=== PATIENT | female | born 1960 | race Caucasian/White ===

== ENCOUNTER → 2023-09-04 09:55 | Outpatient (REF) | payer OTHER, SELFPAY | LOC: HWRAD 09:55 | PROVIDERS: ATTENDING PHYSICIAN Nurse Practitioner | DX: M54.2 Cervicalgia (principal) | CPT/HCPCS: 72050 ==

== ENCOUNTER → 2023-10-24 20:02 | Outpatient (REF) | payer OTHER, SELFPAY | LOC: MRI 20:02 | PROVIDERS: ATTENDING PHYSICIAN Nurse Practitioner | DX: R42 Dizziness and giddiness (principal); R41.89 Other symptoms and signs involving cognitive functions and awareness; R29.898 Other symptoms and signs involving the musculoskeletal system | CPT/HCPCS: 70553; A9575 ==

== ENCOUNTER 2024-03-17 22:12 | Observation (INO) | payer OTHER, SELFPAY ==
[2024-03-17] VITALS (11 sets, daily range): BP systolic 102–160; BP diastolic 54–110; BMI 30.3; BMI 29.4
[2024-03-17 16:42] LABS: Glucose - Point of Care 591 mg/dl (70-99)
--- NOTE | 2024-03-17 16:55 | EDRN ---
Dr. Dodd in to see pt.
--- NOTE | 2024-03-17 17:07 | ED.GENMED ---
History of Present Illness
General
Chief Complaint: Blood Sugar Problem
Time Seen by Provider: 03/17/24 16:48
History of Present Illness
History of Present Illness:
63-year-old female with history of diabetes and hyperlipidemia presenting to the emergency department with hyperglycemia. Patient went to go see her primary care doctor as a follow-up for her diabetes. Reports that her last hemoglobin A1c was in
the 7 range. However, today it was greater than 14 and her sugar was greater than 500. Notes that she has been on metformin, does not routinely check her sugars. Reports that her temperament has been short, otherwise denies significant acute
symptoms. Has had some polyuria, however denies polydipsia. Denies fever, chest pain, difficulty breathing, abdominal pain, vomiting. She does currently have a poison vy infection. She went to urgent care and they prescribed her oral steroids,
however she never started the prescription. Denies additional acute medical complaints.
Past History
Past History
ED Past Medical History: NIDDM and Other (Pancreatitis 30 yrs ago)
ED Past Surgical History: Appendectomy and Cholecystectomy
Social History
Tobacco: Non-smoker
Alcohol: Occasional
Drug: None
Living: with family
Phy Exam
Physical Exam
Physical Exam:
General: Well-appearing, no clinical signs of dehydration, nontoxic and in no acute distress
HEENT: protecting airway
Neck: appears supple
CV: Normal heart rate, regular rhythm, no evidence of cyanosis
Resp: No accessory muscle use, no increased work of breathing, lungs clear to auscultation bilaterally
Abd: Soft and non-distended, no tenderness to palpation, normal bowel sounds
Extremities: No deformities, no swelling, no erythema, pulses and sensation intact
Neuro: alert, no focal neurologic deficit
: deferred
Rectal: deferred
Psych: Normal affect
Skin: Erythematous and plaque-like rash to upper and lower extremities, scabbing and healing in quality
Course
Orders/Labs/Results
Orders:
Orders
03/17/24 16:49
IV Insert/Care/Rem.- Treatment PRN
0.9% Sodium Chloride 1000 ml [Nss] 1,000 ml IV BOLUS
03/17/24 17:45
B-Hydroxybutyrate Urgent
Complete Blood Count/With Diff Urgent
Comprehensive Metabolic Panel Urgent
Venous Blood Gas Urgent
%Oxygen/Room Air: 21
03/17/24 19:58
Urinalysis Reflex To Culture Urgent
Date Specimen was Collected: 03/17/24
Time Specimen was Collected: 19:55
03/18/24 07:30
Insulin Aspart Pen [Novolog Flexpen] 10 units SC AC
Abnormal Lab Results
03/17/24 03/17/24 03/17/24
16:40 17:45 19:58
MCH 31.2 H pg
(27.0-31.0)
MPV 10.6 H fL
(7.4-10.4)
VBG pO2 52 H mmHg
(30-50)
Sodium 133 L mmol/L
(135-145)
Creatinine 0.5 L mg/dL
(0.6-1.0)
Glucose 543 H* mg/dl
(70-99)
Urine Glucose 3+ A
(Negative)
POC Glucose 591 H* mg/dl
(70-99)
03/17/24
20:04
MCH
MPV
VBG pO2
Sodium
Creatinine
Glucose
Urine Glucose
POC Glucose 354 H mg/dl
(70-99)
03/17/24 17:45
03/17/24 17:45
Vital Signs
Initial and Last Documented VS:
Initial Vital Signs
Temp Pulse Resp BP Pulse Ox
98.1 F 96 18 160/81 100
03/17/24 16:36 03/17/24 16:36 03/17/24 16:36 03/17/24 16:36 03/17/24 16:36
Last Documented Vital Signs
Temp Pulse Resp BP Pulse Ox
98.1 F 75 16 128/61 99
03/17/24 16:36 03/17/24 18:30 03/17/24 18:30 03/17/24 18:01 03/17/24 18:30
MDM/Problems Addressed
MDM/Problems Addressed:
63-year-old female with history of diabetes and hyperlipidemia presenting for hyperglycemia. Vital signs on arrival are significant for hypertension.
On exam, patient is well-appearing, no acute distress or discomfort. Patient's glucose checked in triage, 591. Given hemodynamic stability and clinical appearance, lower suspicion for DKA. Will obtain laboratory analysis including VBG, beta
hydroxybutyrate. Will start patient on IV fluids. Will obtain electrolyte panel and continue to closely monitor.
20:00 -patient's sugar is nearly 600. No evidence of DKA. Given that patient is insulin na�ve, feel the patient warrants admission for continued glucose checks, insulin initiation, diabetes teaching. Patient agreeable to plan.
*Critical Care Note
Total Time (30-74mins, 75-104mins- exclusive of procedures): Not Applicable
ED Attending Note
-
Portions of this chart may have been created with voice recognition software.� Occasional wrong word or��sound alike� substitutions may have occurred due to the inherent limitations of voice recognition software.
Discharge Plan
Departure
Prescriptions:
No Action
atorvastatin 20 mg Tablet
20 mg PO HS
Theragen Tablet
1 tab PO DAILY
metformin 750 mg Tablet Extended Release 24 Hr
750 mg PO HS
Referrals:
Lillian Navarrete CRNP [Family Provider] -
Interventions
Interventions:
*Risk Screen - Suicide Last Done: 03/17/24 17:49
*General Assessment Last Done: 03/17/24 17:49
*Neglect/Abuse Screening Last Done: 03/17/24 17:49
ED- Fall Risk Assessment Last Done: 03/17/24 17:49
*ED COVID-19 Vaccine History Last Done: 03/17/24 17:49
ED- Neurological Assessment Last Done: 03/17/24 17:51
Discharge Date and Time
Print Language: LITHUANIAN
[2024-03-17] MEDS: NSS 1000 IV ×2 (17:48→23:32)
[2024-03-17 17:51] LABS: % Basophils 0.6 % (0-2); % Eosinophils 3.9 % (0-6); % Immature Granulocytes 0.4 % (0-0.5); % Lymphocytes 30.3 % (20.5-51.1); % Monocytes 7.3 % (1.7-9.3); % Neutrophils 57.5 % (42.2-75.2); Absolute Eosinophils 0.3 10^3/uL (0-0.7); Absolute Lymphocytes 2.1 10^3/uL (1.2-3.4); Absolute Monocytes 0.5 10^3/uL (0.1-0.6); Hematocrit 37.2 % (37.0-47.0); Hemoglobin 13.4 g/dL (12.0-16.0); Mean Corpuscular Hgb 31.2 pg (27.0-31.0); Mean Corpuscular Volume 86.5 fL (81.0-99.0); Mean Platelet Volume 10.6 fL (7.4-10.4); Nucleated Red Blood Cells % 0 %; Platelet Count 240 10^3/uL (130-400); Red Cell Dist. Width 12.3 % (11.5-14.5); White Blood Cell Count 6.9 10^3/uL (4.8-10.8)
[2024-03-17 17:52] LABS: Venous Blood Gas B.E. 1.4 mmol/L (-4 to +4); Venous Blood Gas HCO3 26.6 mmol/L (22-27); Venous Blood Gas O2 Sat % 87.3 %; Venous Blood Gas pCO2 43 mmHg (35-48); Venous Blood Gas pO2 52 mmHg (30-50)
[2024-03-17 18:22] LABS: ALT (SGPT) 24 U/L (0-35); AST (SGOT) 25 U/L (14-36); Albumin 4.3 g/dl (3.5-5.0); Alkaline Phosphatase 92 U/L (38-126); Blood Urea Nitrogen 15 mg/dl (7-17); Calcium 9.4 mg/dl (8.4-10.2); Carbon Dioxide 25 mmol/L (22-30); Chloride 98 mmol/L (98-107); Estimated Creatinine Clearance 98 ml/min; Glucose 543 mg/dl (70-99); Potassium 4.1 mmol/L (3.5-5.1); Sodium 133 mmol/L (135-145); Total Bilirubin 0.5 mg/dl (0.2-1.3); Total Protein 6.8 g/dl (6.3-8.2); eGFR > 60.00
--- NOTE | 2024-03-17 18:36 | EDRN ---
Glucose 543, called Dr. Dodd no answer. Will TT her the value.
--- NOTE | 2024-03-17 18:44 | EDRN ---
Pt OOB to BR at this time.
[2024-03-17 19:17] LABS: B-Hydroxybutyrate 0.12 mmol/L (0.02-0.27)
[2024-03-17 20:04] LABS: Urine Albumin Negative (Neg - Trace); Urine Bilirubin Negative (Negative); Urine Character Clear (Clear); Urine Color Yellow; Urine Glucose 3+ (Negative); Urine Ketone Negative (Negative); Urine Leukocyte Negative (Negative); Urine Nitrite Negative (Negative); Urine Occult Blood Negative (Negative); Urine Urobilinogen Negative (Neg - 1+); Urine pH 6.5 (5.0-9.0)
[2024-03-17 20:05] LABS: Glucose - Point of Care 354 mg/dl (70-99)
[2024-03-17 21:14] LABS: Glucose - Point of Care 389 mg/dl (70-99)
[2024-03-17] MEDS: BENADRYL 25 MG IV (21:22)
--- NOTE | 2024-03-17 21:40 | HPS.HSE ---
Family Physician
-
Family Physician: ALEXIA Freitas
Chief Complaint
-
High Glucose
History of Present Illness
Patient is a 63y F with PMH significant for DM-II who presents to ED at the direction of her PCP for evaluation of hyperglycemia. Patient states that she was seen today for a routine visit / lab follow-up for her DM. patent was advised that her
A1C was 14% and her glucose was > 500. It was recommended she present to the ED for further evaluation.
Patient takes metformin once daily for DM. She states that her last A1C was in the 7s - though she admits that this was some time ago.
She does not monitor her glucose by fingerstick at home.
Patient notes that she has actually lost weight over the past few months. She admits that this has occurred without any real effort on her part; however, she did not think much of it.
She also complains of recent fatigue, polyuria. No chest pain or dyspnea. No fevers / chills.
Patient recently developed significant contact dermatitis after working in her yard. She has been using multiple OTC agents as well as topical steroids prescribed by Urgent Care.
Patient notes that she was given an Rx for systemic steroids; however, she did not actually take any doses of that medication yet.
Medical History
Past Medical History
Past Medical History: Reports Other
Additional Past Medical History:
DM-II
Past Surgical History: Reports Other
Additional Past Surgical History:
Cholecystectomy
Appendectomy
L Heel Surgery
Social History
Tobacco: Smoker (Current some day smoker.)
Alcohol: Occasional
Family History
Family History: Other (Father: DM)
Allergies / Home Medications
Allergies reflects when Allergies were last updated in [employer].
Home Medications with original date entered in [employer]
Allergy/Medication List:
Allergies
Allergy/AdvReac Type Severity Reaction Status Date / Time
No Known Allergies Allergy Verified 12/23/22 12:13
Home Medications
atorvastatin 20 mg tablet 20 mg PO HS 03/17/24
metformin 750 mg tablet,extended release 24 hr 750 mg PO HS 03/17/24
therapeutic multivitamin 1 tab PO DAILY 03/17/24
Review of Systems
-
History Source: Patient
A 12 point ROS was completed and negative except as noted: Yes
Constitutional: Reports Weight Loss and Fatigue; Denies Fever or Chills
Respiratory: Denies Cough or Trouble Breathing
Cardiac: Denies Chest Pain or Palpitations
Abdomen/GI: Denies Abdominal Pain, Nausea, Vomiting or Diarrhea
: Reports Frequency; Denies Dysuria or Flank Pain
Musculoskeletal: Denies Joint Pain
Skin: Reports Rash
Neurological: Denies Dizzy or Headache
Endocrine: Reports Polyuria; Denies Polydipsia
Psych: Denies Depression or Anxiety
Physical Exam
Vital Signs
Vital Signs
Temp Pulse Resp BP Pulse Ox
98.4 F 77 10 131/86 100
03/17/24 20:06 03/17/24 21:00 03/17/24 21:00 03/17/24 21:06 03/17/24 21:06
Physical Exam
General: Other (63y F in no acute distress.)
HEENT: Moist mucous membranes and PERRLA
Respiratory: Clear; No Wheezes, Rales or Rhonchi
Cardiac: S1/S2 and Regular Rhythm; No Murmur
GI: Soft, Non Tender, Non Distended and Normal Bowel Sounds
Musculoskeletal: No Clubbing, No Cyanosis and No Edema
Skin: Other (Scattered areas of excoriation / inflammation on b/l UEs, LEs, trunk. No pustular / blistering lesions.)
Neuro: AO x 3
Laboratory Results
-
03/17/24 17:45
03/17/24 17:45
Laboratory Results
Total Bilirubin 0.5 mg/dl (0.2-1.3) 03/17/24 17:45
AST 25 U/L (14-36) 03/17/24 17:45
ALT 24 U/L (0-35) 03/17/24 17:45
Alkaline Phosphatase 92 U/L (38-126) 03/17/24 17:45
Impression/Plan
-
A/P: Patient is a 63y F with PMH significant for DM who presents to ED for evaluation of hyperglycemia.
DM-II, Uncontrolled
- Observe overnight for further evaluation and treatment.
- Glucose decreased from 500s to 300s with only IVFs in the ED.
- ? some elevation due to significant topical steroid use +/- acute inflammatory process / contact dermatitis; however, A1C > 14% points to longer term poor control.
- Begin low-dose sulfonylurea for now.
- Increase metformin to 1000mg BID dosing.
- Follow glucose and cover with SSI as needed.
- DM Education consult.
- Once glucose control is improved, discharge for continued OP follow-up with PCP.
Contact Dermatitis
- Avoid further steroids - topical or systemic - for now.
- Benadryl PRN itching.
DVT Prophylaxis: SCDs
Code Status: Full
[2024-03-17] MEDS: GLUCOTROL 2.5 MG PO (21:55)
[2024-03-17 23:20] LABS: Glucose - Point of Care 428 mg/dl (70-99)
[2024-03-17] MEDS: LIPITOR 20 MG PO (23:32)
[2024-03-18 00:56] LABS: Glucose 377 mg/dl (70-99)
[2024-03-18] MEDS: NOVOLOG FLEXPEN 5 UNITS SC (01:17)
[2024-03-18] MEDS: MELATONIN 3 MG PO (01:18)
[2024-03-18 03:25] LABS: Glucose - Point of Care 242 mg/dl (70-99)
[2024-03-18 06:00] VITALS: BMI 29.3
[2024-03-18 07:18] LABS: Glucose - Point of Care 237 mg/dl (70-99)
[2024-03-18 07:20] VITALS: BP 105/64
[2024-03-18] MEDS: BENADRYL 25 MG PO (07:37)
[2024-03-18 08:11] LABS: Blood Urea Nitrogen 13 mg/dl (7-17); Calcium 8.7 mg/dl (8.4-10.2); Carbon Dioxide 23 mmol/L (22-30); Chloride 107 mmol/L (98-107); Estimated Creatinine Clearance 97 ml/min; Glucose 211 mg/dl (70-99); Potassium 3.8 mmol/L (3.5-5.1); Sodium 138 mmol/L (135-145); eGFR > 60.00
[2024-03-18] MEDS: GLUCOPHAGE 1000 MG PO (08:31)
[2024-03-18] MEDS: GLUCOTROL 2.5 MG PO (08:31)
[2024-03-18] MEDS: NOVOLOG FLEXPEN-LOW RESISTANCE 2 UNITS SC ×2 (08:33→12:13)
[2024-03-18 08:39] LABS: TSH Reflex To Free T4 1.88 uIU/ml (0.47-4.68)
[2024-03-18] MEDS: NSS 1000 IV (09:23)
[2024-03-18 09:56] LABS: Hemoglobin 12.9 g/dL (12.0-16.0); Mean Corp Hgb Conc. 35.8 g/dL (33.0-37.0); Mean Corpuscular Hgb 31.1 pg (27.0-31.0); Mean Corpuscular Volume 86.7 fL (81.0-99.0); Mean Platelet Volume 10.1 fL (7.4-10.4); Platelet Count 235 10^3/uL (130-400); Red Blood Cell Count 4.15 10^6/uL (4.20-5.40); Red Cell Dist. Width 12.4 % (11.5-14.5); White Blood Cell Count 6.4 10^3/uL (4.8-10.8)
--- NOTE | 2024-03-18 10:22 | CM ---
Patient seen at bedside.
Dx: Uncontrolled diabetes
IA completed. Observation form explained & signed.
Patient lives in split level home with .
7 steps to 1st floor, 7 steps to 2nd floor.
PLOF: Independent, driving.
PCP: Dr. Annabella Navarrete
Pharmacy: [facility]
PLAN: Discharge when medically stable.
Patient has car here
[2024-03-18 10:57] LABS: Glycohemoglobin (HgbA1c) 13.4 % (4.0-5.6)
--- NOTE | 2024-03-18 11:36 | W.PN.HOSP.TC ---
Addendum entered and electronically signed by Denys Mary MD 03/18/24 15:45:
uncontrolled dm
-start long short acting insulin
provide insulin teaching
acccuchecks bg goal 140-180 ssi ccdiet
need outpt pod and othal follow up
rash start antifungal ointment and continue bendaryl
outpt derm follow up
Original Note:
Today's Communication/Plan
-
Diabetes nurse educator.
Stop glipizide.
Start on Lantus and NovoLog regimen.
Continuous glucose monitor.
Topical antifungal ointment and Benadryl.
Plan for discharge.
Assessment / Plan
Assessment / Plan
[id number]-old female with PMHx significant for DM 2, obesity, acute pancreatitis secondary to Ozempic use, cholecystectomy and appendectomy presents to the [facility] ER after seeing her primary care and POC blood glucose was 569.
Diagnosed with uncontrolled type 2 diabetes mellitus.
Plan-
DM type II uncontrolled-
Blood glucose improved from 500s to 300s with IV fluids in the emergency room.
States patient has not used any oral steroids even though she was prescribed.
Topical steroids might cause mild elevation in blood sugars but are highly unlikely to cause such high elevations.
HbA1c greater than 14%, likely secondary to her acute pancreatitis history in the past.
Would not use sulfonylurea in a patient with history of pancreatitis.
Metformin thousand mg twice daily dosing.
Diabetes nurse educator consult for teaching insulin regimen, diabetic diet, and diabetes education.
Blood glucose is at 230 7 in the AM today and patient received sliding scale insulin.
Plan for discharge on insulin regimen and with a continuous glucose monitor.
Skin rash-
Could not rule out if the rash is contact dermatitis versus tinea.
Recommended to follow-up on outpatient basis for punch biopsy and diagnosis, appropriate management.
Benadryl as needed for itching, topical antifungal empirically to see if the rash is improving.
Hyperlipidemia-
Continue home statin.
DVT prophylaxis-patient on Lovenox
CODE STATUS full code.
Anticipated Discharge: Today
Subjective/Interval History
-
Date of Service: March 18, 2024
'Severe itching overnight, and worsening rash.
Benadryl helped with the itching but not completely.
Objective Data
-
Labs:
Laboratory Results
03/18/24 03/18/24 03/18/24
00:29 06:19 09:42
WBC Cancelled 6.4
Hgb Cancelled 12.9
Hct Cancelled 36.0 L
Plt Count Cancelled 235
Sodium 138
Potassium 3.8
Chloride 107
Carbon Dioxide 23
BUN 13
Creatinine 0.5 L
Glucose 377 H 211 H
Calcium 8.7
Vital Signs:
Vital Signs
Temp Pulse Resp BP Pulse Ox
98.4 F 70 16 105/64 98
03/18/24 07:20 03/18/24 07:20 03/18/24 07:20 03/18/24 07:20 03/18/24 08:51
Review of Systems
-
History Source: Patient
Constitutional: Reports No Symptoms
Respiratory: Reports No Symptoms
Cardiac: Reports No Symptoms
Abdomen/GI: Reports No Symptoms
Breast: Reports No Symptoms
Genitourinary: Reports No Symptoms
Musculoskeletal: Reports No Symptoms
Skin: Reports Itching and Rash
Neuro: Reports No Symptoms
Endocrine: Reports Polyuria, Polydipsia and Excessive Thirst
Hematologic / Lymphatic: Reports No Symptoms
Allergy / Immunology: Reports No Symptoms
Physical Exam
-
General: No Apparent Distress and Comfortable (On room air.)
HEENT: Normocephalic, Atraumatic, Moist Mucous Membranes and PERRLA
Respiratory: Clear to Auscultation; Negative Wheezes, Rales or Rhonchi
Cardiac: Regular Rhythm and S1/S2; Negative Murmur, Rub or Gallop
GI: Soft, Nontender, Nondistended and Normal Bowel Sounds
Musculoskeletal: No Clubbing, No Cyanosis and No Edema
Skin: Other (Multiple erythematous raised macular lesions with central clearing, scaling and peripheral spreading as well as point hemorrhages noted, largest 1 is about 7 X9 cm)
Neuro: AO x 3
Psych: Calm
--- NOTE | 2024-03-18 11:38 | PN.DE.MGMTRT ---
Insulin Management
- -
03/18/2024 Diabetes Management Consult and Education
Patient sent from PCP office for high glucose >500. PMH type 2 diabetes for 20 years. Prior to admission was taking metformin 750 mg BID. A1C on admission 14%.
Patient is awake alert and oriented able to discuss diabetes management. At my initial visit I provided a glucose monitor, initially she stated she never tested her glucose but then stated she had meters in the past but she always lost them. She
requested a CGM, explained the process of primary doctor and insurance requirements. Provided and instructed on use of Contour Next glucose monitor with good return demonstration.
Initially increased glipizide to 5 mg BID and started lantus 14 units in AM.
I returned to instruct her on insulin one hour later. At that time she told me she took Ozempic in the past and knew how to use a pen and needle. I questioned her regarding the status of taking the Ozempic, she stated she stopped it because she
got pancreatitis. Due to history of pancreatitis will stop glipizide, add 4 units novolog AC with low corrective insulin.
Diabetes History
- -
Type of Diabetes: 2 requiring insulin
Pre-Admission Diabetes Regimen
03/17/24 03/18/24
17:45 06:19
Creatinine 0.5 L 0.5 L
Lab Results
Hemoglobin A1c 13.4 % (4.0-5.6) H 03/18/24 09:42
Insulin Pump Settings
IP Diabetes Regimen
03/17/24 03/17/24 03/17/24
16:40 17:45 20:04
Glucose 543 H*
POC Glucose 591 H* 354 H
03/17/24 03/17/24 03/18/24
21:12 23:19 00:29
Glucose 377 H
POC Glucose 389 H 428 H
03/18/24 03/18/24 03/18/24
03:24 06:19 07:12
Glucose 211 H
POC Glucose 242 H 237 H
Patient Education
--- NOTE | 2024-03-18 12:00 | W.DCSUMMARY ---
Discharge Summary
Discharge Data
Date of Admission: 03/17/24
Date of Discharge: 03/18/24
-
Pending Results: No
Hospital Course
Admission diagnosis-
Severe hyperglycemia secondary to uncontrolled type II DM
Conditions WATER RESOURCE ENGINEER-
Type II DM
Obesity
PMHx of pancreatitis secondary to Ozempic use.
Hospital course -
During the hospital course, patient was given IV fluids upon admission and patient's blood glucose improved from 5 89-300, overnight patient only complained of rash for which Benadryl helped to an extent. Metabolic panel, electrolytes, ABG are all
within normal limits, no evidence of ketoacidosis. Patient's diabetes regimen is changed into metformin thousand twice daily, her glipizide was discontinued, instructions for long-acting and short-acting insulin administration, sliding scale
insulin administration along with metformin, medication compliance, diabetic diet, exercise-given to the patient. Extensive counseling provided by diabetes nurse educator.
Patient is stable for discharge and is discharged.
Discharge instructions-
Follow-up with primary care in the outpatient setting.
Discharge Plan
-
Patient Disposition: Home (Routine Discharge)
Discharge Diagnosis/Procedures: Uncontrolled Type 2 DM
Condition: Fair
Diet: Diabetic, Carb Controlled
Activity: No restrictions
Driving Restrictions: As prior to admission
Bathing Restrictions: None
Wound Care: apply topical anti fungal medication on the lesion sites
Activity Restrictions/Additional Instructions:
Follow up with primary care physician in 1-2 weeks
Follow
Referrals:
Lillian Navarrete CRNP [Family Provider] -
Prescriptions:
New
metformin 1,000 mg Tablet
1,000 mg PO BID@0800,1700 30 Days Qty: 60 2RF
insulin glargine-aglr 100 unit/mL (3 mL) insulin pen
14 unit SC QPM 60 Days Qty: 15 2RF
insulin aspart U-100 [Novolog FlexPen U-100 Insulin] 100 unit/mL (3 mL) insulin pen
1 sliding scale dose SC DIRECTED PRN (Reason: On Lantus and Metformin) 30 Days Qty: 15 2RF
Rx Instructions:
Moderate resistance sliding scale
(DME) Dexcom G7 Sensor Device
See Rx Instructions .Route Qty: 1 4RF
Rx Instructions:
As directed
(DME) Dexcom G7 [employer] Floor Person Misc
See Rx Instructions .Route Qty: 1 0RF
Rx Instructions:
As directed
naftifine 1 % cream
1 applic topical BID AT 0800,1700 28 Days Qty: 60 1RF
Continued
atorvastatin 20 mg Tablet
20 mg PO HS
therapeutic multivitamin Tablet
1 tab PO DAILY
Discontinued
metformin 750 mg Tablet Extended Release 24 Hr
750 mg PO HS
Discharge Orders:
Discharge Patient (As Directed); Ordered 03/18/24
Ordered By: Yaneth Escobedo
Discharge Date and Time
Print Language: TURKMEN
[2024-03-18] MEDS: LANTUS 0.14 UNITS SC (12:10)
[2024-03-18] MEDS: NOVOLOG FLEXPEN 4 UNITS SC (12:13)
[2024-03-18 12:54] VITALS: BP 110/74
[2024-03-18 13:10] LABS: Glucose - Point of Care 218 mg/dl (70-99)
== END 2024-03-18 12:57 | disposition home or self-care (01) ==
LOC: 4 WEST ACU 22:12
PROVIDERS: Student in an Organized Health Care Education/Training Program; ADMITTING PHYSICIAN Hospitalist; ATTENDING PHYSICIAN Hospitalist; EMERGENCY PHYSICIAN Student in an Organized Health Care Education/Training Program; FAMILY PHYSICIAN Nurse Practitioner
DX: E11.65 Type 2 diabetes mellitus with hyperglycemia (principal); E78.5 Hyperlipidemia, unspecified; I10 Essential (primary) hypertension; F17.200 Nicotine dependence, unspecified, uncomplicated; E66.9 Obesity, unspecified; R63.1 Polydipsia; R35.89 Other polyuria; R21 Rash and other nonspecific skin eruption; Z68.29 Body mass index [BMI] 29.0-29.9, adult; Z90.49 Acquired absence of other specified parts of digestive tract; Z79.84 Long term (current) use of oral hypoglycemic drugs; Z83.3 Family history of diabetes mellitus; Z87.19 Personal history of other diseases of the digestive system
CPT/HCPCS: 80048; 80053; 81003; 82010; 82805; 82947; 82962; 83036; 84443; 85025; 85027; 96361; 96374; 99285; G0378

== ENCOUNTER → 2024-04-13 09:08 | Outpatient (REF) | payer OTHER, SELFPAY ==
--- NOTE | 2024-04-01 09:10 | PN.DIAED02 ---
Referral
DSME Class Series Code: [id number]
Referred For: Diabetes Self-Management Training, Continuous Glucose Monitoring, Medication management, Disease Management
PHI Release Authorization Form Signed: Yes
Patient Problems:
Current Active Problems
Problem Status Onset
Type 2 diabetes mellitus with hyperglycemia ~03/18/24
Demographic
(1) Type 2 diabetes mellitus with hyperglycemia
Status: Acute Onset Date: ~03/18/24
Qualifiers:
Diabetes mellitus detention insulin use: with detention use Qualified Code(s): E11.65 - Type 2 diabetes mellitus with hyperglycemia; Z79.4 - terminal supervisor (current) use of insulin
Code(s): E11.65 - Type 2 diabetes mellitus with hyperglycemia
Patient's primary language-: Botswanan
Education: High school/GED
Occupation: Professional
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
Shift: Day
- Social
Primary Support Person: Self
Primary Care Takers: Self
Living Arrangements: Self & spouse
- Learning Methods
Preferred Method: Hands-on demonstration
Barriers to Learning: None
Glycemic Control
- Blood Glucose Monitoring Assessment
Date: 04/01/24 (FBG 149)
Blood glucose monitoring at home: Yes
Monitor Brands: Other (Dexcom G7)
Time: fasting, before breakfast, before lunch, before dinner, bedtime
Patient uses Alternate Site Testing: Yes
- Hemoglobin A1c
Date: 03/18/24
A1C Percentage (%): 13.4
Medical History of Diabetes
Family Diabetes History: Father
Previous Diabetes Education: No
Previous visit with Dietitian: No
Complications/Comorbidity/Specialist: Hyperlipidemia
Current Home Medication
- Insulin Management
Patient adjusts own insulin dosages: Yes (Pt is on Novolog SS)
Patient has access to glucagon: Yes
Measures
- Anthropometrics
Height: 5 ft 5 in
Actual Weight: 76.657 kg
- Blood Pressure / Pulse
Blood pressure: 127/70
Pulse: 82
- Diabetes Management
Medical Management for Diabetes: Complete physical exam (03/2024), Dental exam (09/2023), Flu Vaccination (08/2023), Foot exam (03/2024)
Self-Care
- Tobacco Usage
Do you now, or have you ever smoked?: Quit more than 1 year ago
- Alcohol & Drugs Usage
Drinks Alcohol: Yes
Amount/day: Social Occasions
Uses Recreational Drugs: No
- Meals & Dining
Meals & Dining: Patient skips meals: No, Food Intolerance / Allergy: No, Cultural / Mandaen Dietary Needs: No
Primary Food Transport Tank Technician: Self
Primary Car Pincher: Self
Dining Out Frequency: 1-3x per week
- Physical Activity
Physical Limitation: No
Patient participates in physical Activity: Yes
Activity Types: Biking, walking
Duration: 21-30 minutes
Frequency: 3-5x per week
Intensity: Easy
- Self Foot-Care
Foot Problems: None
Performs Self Foot-Exam: Yes (Daily in AM)
Frequency: Daily
- Patient-Self Assessment
Diabetes Knowledge: Good
Feelings About Diabetes: Acceptance
General Health: Good
Importance of Health: Extremely
Stress Level: Low
Diabetes Interferes With:: Nothing
Barriers to Diabetes Management: Nothing
Depression Survey Score: 0
- Diabetes Identification
Carries Diabetes Identification: No
Diabetes Identification Information Provided: No
Care Plan
- Education Needs
Patient Education Needs: Diabetes disease process, Chronic complications, Acute complications, Medication, Monitoring, Goal setting & problem solving
Recommended Diabetes Training Program based on assessment: Outpatient Diabetes Education Program
- Plan of Care
Plan of Care:
Met with Ms. Kinney travis for registration and initiation of Diabetes Self-management. Pt was recommended by her PCP due to uncontrolled Diabetes, A1C of 13.4% that was noted on recent blood work in March. Patient reports that she was started on
Metformin and insulin sliding scale after she was admitted to the hospital for high blood sugars > 500. She recently started using a CGM-Dexcom G7 and states she has been doing well and is no longer having the frequent urination. She reports a FBG
of 149 this AM. Pt was assisted with insertion of new CGM Sensor during this visit.
She recently started exercising (walking and riding her bike) 30 minutes/day x5 days and would like to continue with that as one of her goals.
Pt was counseled with emphasis on need to continue with intensive lifestyle modification that includes healthy eating, exercising and monitoring blood glucose.
--- NOTE | 2024-04-01 09:28 | PN.DIAED04 ---
Education Record
- Education Record
Class Attended: Other (Pre-Registration for DSME Classes)
DSME Class Series Code: [id number]
Instructor: Nurse Practitioner
Class Length (mins): 60
Pre-Program Knowledge: Demonstrates competency
Pre-Test Score (%): 83
Goals
- Goal 1
Being Active: Exercise 30 minutes-5 times per week
Goals To Be Evaluated: Exercise 30 mins-5x/week
- Goal 2
Healthy Eating: Make better food choices, Follow meal plan, Reduce portion sizes
Goals To Be Evaluated: Make better food choices. Follow meal plan. Reduce portion sizes
- Goal 3
Monitoring: Check blood sugar 4x daily-b4 breakfast/b4 lunch/b4 dinner/at bedtime
Goals To Be Evaluated: Check blood sugar 4x/day
--- NOTE | 2024-04-14 14:12 | PN.DIAED14 ---
This is to notify you that your patient with diabetes, ALEX BERNABE ( 1960), has enrolled in our diabetes self-management classes that are being held at [facility].
These classes will include an introduction to diabetes, diet, medication, exercise and prevention of complications. At the end of our class series, you will receive a report of your patient's participation and progress for your records.
Please contact me at the Diabetes Center, , if there is any particular information regarding your patient that might be helpful to me.
Sincerely,
ALEXIA Gudino-, [facility]
Director
Diabetes & Nutrition Services
== END ==
LOC: DES 09:08
PROVIDERS: ATTENDING PHYSICIAN Internal Medicine
DX: E11.65 Type 2 diabetes mellitus with hyperglycemia (principal)
CPT/HCPCS: 99078

== ENCOUNTER → 2024-04-27 12:00 | Outpatient (REF) | payer OTHER, SELFPAY ==
--- NOTE | 2024-04-28 13:36 | PN.DIAED04 ---
Education Record
- Education Record
Class Attended: Class 3
DSME Class Series Code: [id number]
Instructor: Registered Dietitian (Padmini Raza, RD, LDN, CDE)
Class Length (mins): 120
Post-Class 2 & 3 Test Score (%): 63
== END ==
LOC: DES 12:00
PROVIDERS: ATTENDING PHYSICIAN Internal Medicine
DX: E11.65 Type 2 diabetes mellitus with hyperglycemia (principal)
CPT/HCPCS: 99078

== ENCOUNTER → 2024-05-04 12:00 | Outpatient (REF) | payer OTHER, SELFPAY | LOC: DES 12:00 | PROVIDERS: ATTENDING PHYSICIAN Internal Medicine | DX: E11.65 Type 2 diabetes mellitus with hyperglycemia (principal) | CPT/HCPCS: 99078 ==

== ENCOUNTER 2024-08-17 06:15 | Day surgery (SDC) | payer OTHER, SELFPAY ==
[2024-08-17 08:16] LABS: Glucose - Point of Care 161 mg/dl (70-99)
== END 2024-08-17 09:36 | disposition home or self-care (01) ==
LOC: GI 06:15
PROVIDERS: ATTENDING PHYSICIAN Internal Medicine
DX: Z12.11 Encounter for screening for malignant neoplasm of colon (principal); K57.30 Diverticulosis of large intestine without perforation or abscess without bleeding; K64.8 Other hemorrhoids; K29.70 Gastritis, unspecified, without bleeding; K92.0 Hematemesis; K31.89 Other diseases of stomach and duodenum
CPT/HCPCS: 43239; G0121; 88305; 82962; 88342

== ENCOUNTER → 2025-02-23 15:45 | Outpatient (REF) | payer OTHER, SELFPAY | LOC: RAD 15:45 | DX: R63.4 Abnormal weight loss (principal) | CPT/HCPCS: 71260; 74177; Q9967 ==